=== PATIENT | female | born 1950 | race African-American/Black ===

== ENCOUNTER 2017-04-05 08:46 | Emergency (ER) | payer MEDICARE, OTHER ==
[~2017-04-05] VITALS: Ht 165.1 cm; Wt 75.0 kg
[~2017-04-05 08:46] MED LIST: NORCO; TRAMADOL
[2017-04-05] MEDS ORDERED: CELE200C PO (08:58)
[2017-04-05] MEDS ORDERED: IBUP-1636 PO (08:59)
[2017-04-05] MEDS ORDERED: SODIUM CHLORIDE 0.9% 1,000 ML IV SCH (09:14)
[2017-04-05] MEDS ORDERED: FAMOTIDINE 20MG/2ML VIAL IV ONE (09:15)
[2017-04-05] MEDS ORDERED: IBUPROFEN 600MG TABLET PO ONE (09:15)
[2017-04-05] MEDS ORDERED: METHYLPREDNISOLONE SOD SUCC 125 MG/2 ML VIAL IV ONE (09:15)
[2017-04-05] MEDS ORDERED: DIPHENHYDRAMINE 50MG/ML VIAL IV ONE (09:15)
[2017-04-05 13:03] VITALS: BP 147/89
== END 2017-04-05 13:03 | disposition home or self-care (01) ==
LOC: ER 08:59
DX: B00.2 Herpesviral gingivostomatitis and pharyngotonsillitis (principal)
CPT/HCPCS: 96361; 96374; 96375; 99285; J1200; J2930; J3490; J7030

== ENCOUNTER 2017-08-08 11:38 | Emergency (ER) | payer OTHER, MEDICAID ==
[~2017-08-08] VITALS: Ht 157.5 cm; Wt 70.0 kg
[2017-08-08 11:47] VITALS: BP 124/96
[2017-08-08] MEDS ORDERED: TRAM50TA3 PO (11:51)
[2017-08-08] MEDS ORDERED: IBUPROFEN 400MG TABLET PO ONE (16:15)
== END 2017-08-08 17:24 | disposition home or self-care (01) ==
LOC: ER 13:39
DX: M48.56XA Collapsed vertebra, not elsewhere classified, lumbar region, initial encounter for fracture (principal); W01.0XXA Fall on same level from slipping, tripping and stumbling without subsequent striking against object, initial encounter; Y93.89 Activity, other specified; Y92.89 Other specified places as the place of occurrence of the external cause; Y99.8 Other external cause status; Z96.659 Presence of unspecified artificial knee joint
CPT/HCPCS: 72070; 72100; 99284